=== PATIENT | male | born 1980 | race Two or more races ===

== ENCOUNTER 2019-11-05 23:22 | Inpatient (IN) | payer OTHER ==
[~2019-11-05] VITALS: Ht 167.6 cm; Wt 115.0 kg
--- NOTE | 2019-11-05 23:47 | NUR ---
THIS IS A 39Y M THAT COMES IN FOR BURNING CP X4 DAYS. PT HAS HX OF CHF, AND RECENTLY RAN OUT OF HIS MEDICATIONS. PT ABLE TO SPEAK IN FULL SENTENCES AND STS THIS HAS HAPPENED IN THE PAST. PT CONNECTED TO MONITORING VSS.
[2019-11-05] MEDS ORDERED: ISOS20TA3 PO (23:55)
[2019-11-05] MEDS ORDERED: SACU1TAB PO (23:55)
[2019-11-05] MEDS ORDERED: METO25TA35 PO ×2 (23:55)
[2019-11-05] MEDS ORDERED: ALBU6.7H8 INH (23:56)
[2019-11-06] MEDS ORDERED: SODIUM CHLORIDE FLUSH 10ML SYR IVF ONE
[2019-11-06 00:21] LABS: BASOPHILS # (AUTO) 0.11 x10^3/uL (0-0.1); BASOPHILS % (AUTO) 1 % (0-1); EOSINOPHILS # (AUTO) 0.57 x10^3/uL (0-0.4); EOSINOPHILS % (AUTO) 6 % (1-7); LYMPHOCYTES # (AUTO) 2.54 x10^3/uL (1-3.4); LYMPHOCYTES % (AUTO) 26 % (22-44); MD NO; MEAN CORPUSCULAR HEMOGLOBIN 31.7 pg (27.5-34.5); MEAN CORPUSCULAR HGB CONC 33.4 g/dL (33.2-36.2); MEAN CORPUSCULAR VOLUME 94.8 fL (81-97); MEAN PLATELET VOLUME 7.7 fL (7.4-10.4); MONOCYTES # (AUTO) 0.66 x10^3/uL (0.2-0.8); MONOCYTES % (AUTO) 7 % (2-9); NEUTROPHILS # (AUTO) 6.02 x10^3/uL (1.8-6.8); NEUTROPHILS % (AUTO) 61 % (42-75); PLATELET COUNT 240 x10^3/uL (130-400); RED BLOOD COUNT 4.95 x10^6/uL (4.38-5.82); RED CELL DISTRIBUTION WIDTH 14.2 % (9.4-14.8)
[2019-11-06] MEDS ORDERED: ISOSORBIDE MONONITRATE 20 MG TABLET PO ONE (00:30)
[2019-11-06 00:34] LABS: ALANINE AMINOTRANSFERASE 79 U/L (12-78); ALBUMIN 3.6 g/dL (3.4-5.0); ANION GAP 7 mmol/L (5-15); CALCIUM 8.3 mg/dL (8.5-10.1); CHLORIDE 111 mmol/L (98-107); CREATININE 1.63 mg/dL (0.7-1.3)
[2019-11-06 00:38] LABS: ALKALINE PHOSPHATASE 74 U/L (45-117); BILIRUBIN,TOTAL 0.7 mg/dL (0.2-1.0); TOTAL PROTEIN 7.1 g/dL (6.4-8.2); TROPONIN I 0.033 ng/mL (0.000-0.045)
[2019-11-06 01:03] LABS: D-DIMER 0.46 ug/mlFEU (0.00-0.52); INTERNATIONAL NORMALIZED RATIO 1.11 (0.93-1.1); PROTHROMBIN TIME 11.4 Seconds (9.6-11.5)
--- NOTE | 2019-11-06 01:10 | NUR ---
Break RN: Medicated patient per apr. IV established. Patient to be admitted.
[2019-11-06] MEDS ORDERED: ASPIRIN 81 MG TABLET CHEW ONE (01:15)
[2019-11-06] MEDS ORDERED: FUROSEMIDE 40 MG/4 ML ONE (01:15)
[2019-11-06] MEDS ORDERED: ASPIRIN 81 MG TABLET CHEW PO ONE (01:30)
[2019-11-06] MEDS ORDERED: FUROSEMIDE 40 MG/4 ML IV ONE (01:30)
[2019-11-06] MEDS ORDERED: ALBUTEROL HFA 90 MCG/SPRAY INH SCH (02:00)
[2019-11-06] MEDS ORDERED: NITROGLYCERIN 0.4 MG BOTTLE (25 TABS) SL PRN (02:00)
[2019-11-06] MEDS ORDERED: DOCUSATE 100 MG CAPSULE PO PRN (02:00)
[2019-11-06 02:34] VITALS: BP 130/90
[2019-11-06] MEDS: HEPARIN 5,000 UNITS/ML, 1ML SQ SCH ×3 (03:24→17:49)
[2019-11-06 03:43] LABS: CHLORIDE,URINE RANDOM 118 mmol/L; POTASSIUM,URINE RANDOM 14 mmol/L; SODIUM,URINE RANDOM 104 mmol/L
[2019-11-06 05:44] LABS: TROPONIN I 0.016 ng/mL (0.000-0.045)
[2019-11-06] MEDS ORDERED: ASPIRIN 81 MG TABLET EC PO SCH (06:00)
[2019-11-06] MEDS ORDERED: METOPROLOL TARTRATE 25 MG TAB PO SCH ×2 (07:30→21:00)
[2019-11-06 07:31] VITALS: BP 132/90
[2019-11-06 08:51] VITALS: BP 137/95
[2019-11-06] MEDS: ISOSORBIDE MONONITRATE 20 MG TABLET PO SCH (08:59)
[2019-11-06] MEDS ORDERED: FUROSEMIDE 40 MG/4 ML IVPush SCH (09:00)
[2019-11-06] MEDS ORDERED: SACUBITRIL/VALSARTAN 24MG-26MG TAB PO SCH (09:00)
[2019-11-06] MEDS: POTASSIUM CHLORIDE 20 MEQ TAB.ER.PRT PO SCH (09:01)
[2019-11-06] MEDS: ASPIRIN 81 MG TABLET EC PO SCH (09:01)
[2019-11-06 13:47] VITALS: BP 115/77
[2019-11-06 14:05] LABS: TROPONIN I < 0.015 ng/mL (0.000-0.045)
[2019-11-06] MEDS: CARVEDILOL 6.25 MG TABLET PO SCH (17:49)
[2019-11-06 17:50] VITALS: BP 133/92
[2019-11-06 19:26] VITALS: BP 124/87
[2019-11-06] MEDS: ATORVASTATIN 20 MG TABLET PO SCH (21:15)
[2019-11-06] MEDS: FUROSEMIDE 40 MG/4 ML IVPush SCH (21:15)
[2019-11-07 00:55] VITALS: BP 104/67
[2019-11-07] MEDS: HEPARIN 5,000 UNITS/ML, 1ML SQ SCH ×3 (00:57→17:10)
[2019-11-07 05:21] LABS: BASOPHILS # (AUTO) 0.09 x10^3/uL (0-0.1); BASOPHILS % (AUTO) 1 % (0-1); EOSINOPHILS # (AUTO) 0.64 x10^3/uL (0-0.4); EOSINOPHILS % (AUTO) 7 % (1-7); LYMPHOCYTES # (AUTO) 2.96 x10^3/uL (1-3.4); LYMPHOCYTES % (AUTO) 34 % (22-44); MD NO; MEAN CORPUSCULAR HEMOGLOBIN 31.6 pg (27.5-34.5); MEAN CORPUSCULAR HGB CONC 33.5 g/dL (33.2-36.2); MEAN CORPUSCULAR VOLUME 94.5 fL (81-97); MEAN PLATELET VOLUME 7.9 fL (7.4-10.4); MONOCYTES % (AUTO) 6 % (2-9); NEUTROPHILS # (AUTO) 4.54 x10^3/uL (1.8-6.8); NEUTROPHILS % (AUTO) 52 % (42-75); PLATELET COUNT 244 x10^3/uL (130-400); RED BLOOD COUNT 5.25 x10^6/uL (4.38-5.82); RED CELL DISTRIBUTION WIDTH 14.2 % (9.4-14.8)
[2019-11-07 05:32] LABS: CHLORIDE 111 mmol/L (98-107)
[2019-11-07 05:40] LABS: ALANINE AMINOTRANSFERASE 84 U/L (12-78); ALBUMIN 3.5 g/dL (3.4-5.0); ALKALINE PHOSPHATASE 70 U/L (45-117); ANION GAP 5 mmol/L (5-15); BILIRUBIN,TOTAL 1.2 mg/dL (0.2-1.0); CALCIUM 8.7 mg/dL (8.5-10.1); CHOL/HDL RATIO 7.1; CHOLESTEROL, TOTAL 227 mg/dL (140-239); CREATININE 1.62 mg/dL (0.7-1.3); HDL CHOL % 14 % (26-37); HDL CHOLESTEROL (DIRECT) 32 mg/dL (40-60); LDL CHOLESTEROL,CALCULATED 152 mg/dL (54-169); LDL/HDL RATIO 4.8 (0.5-3.0); TOTAL PROTEIN 7.5 g/dL (6.4-8.2); TRIGLYCERIDES 215 mg/dL (50-200); VLDL CHOLESTEROL 43 mg/dL (0-25)
[2019-11-07 06:19] VITALS: BP 138/96
[2019-11-07] MEDS: CARVEDILOL 6.25 MG TABLET PO SCH (06:20)
[2019-11-07 06:49] VITALS: BP 133/99
[2019-11-07] MEDS: POTASSIUM CHLORIDE 20 MEQ TAB.ER.PRT PO SCH (09:09)
[2019-11-07] MEDS: ASPIRIN 81 MG TABLET EC PO SCH (09:09)
[2019-11-07] MEDS: FUROSEMIDE 40 MG/4 ML IVPush SCH ×2 (09:09→21:08)
[2019-11-07] MEDS: ISOSORBIDE MONONITRATE 20 MG TABLET PO SCH (09:09)
[2019-11-07 13:08] VITALS: BP 123/88
[2019-11-07] MEDS: CARVEDILOL 12.5 MG TABLET PO SCH (17:10)
[2019-11-07 19:02] VITALS: BP 111/76
[2019-11-07] MEDS: ATORVASTATIN 20 MG TABLET PO SCH (21:08)
[2019-11-08] MEDS: HEPARIN 5,000 UNITS/ML, 1ML SQ SCH ×2 (01:04→09:12)
[2019-11-08 02:58] VITALS: BP 119/78
[2019-11-08 05:18] LABS: CHLORIDE 110 mmol/L (98-107)
[2019-11-08 05:23] LABS: ALANINE AMINOTRANSFERASE 79 U/L (12-78); ALBUMIN 3.8 g/dL (3.4-5.0); ALKALINE PHOSPHATASE 72 U/L (45-117); ANION GAP 9 mmol/L (5-15); CALCIUM 9.3 mg/dL (8.5-10.1); CREATININE 1.83 mg/dL (0.7-1.3); TOTAL PROTEIN 7.5 g/dL (6.4-8.2)
[2019-11-08 05:41] VITALS: BP 109/79
[2019-11-08] MEDS: CARVEDILOL 12.5 MG TABLET PO SCH (05:43)
[2019-11-08 07:48] VITALS: BP 118/88
[2019-11-08] MEDS: POTASSIUM CHLORIDE 20 MEQ TAB.ER.PRT PO SCH (09:11)
[2019-11-08] MEDS: ISOSORBIDE MONONITRATE 20 MG TABLET PO SCH (09:11)
[2019-11-08] MEDS: ASPIRIN 81 MG TABLET EC PO SCH (09:12)
[2019-11-08] MEDS: FUROSEMIDE 40 MG/4 ML IVPush SCH (09:12)
[2019-11-08] MEDS ORDERED: ATOR20TA37 PO (11:41)
[2019-11-08] MEDS ORDERED: POTA20TA6 PO (11:41)
[2019-11-08] MEDS ORDERED: ASPI81TA45 PO (11:41)
[2019-11-08] MEDS ORDERED: FURO20TA3 PO (11:41)
[2019-11-08] MEDS ORDERED: CARV12.52 PO (11:41)
[2019-11-08] MEDS ORDERED: FUROSEMIDE 20 MG TABLET PO SCH (17:00)
== END 2019-11-08 13:00 | disposition home or self-care (01) | DRG 292 ==
LOC: ED 11-06 02:15 → 5SO 11-06 02:30 → SUATTDRO 11-06 05:22 → ED 11-06 06:42 → DCLOUNGE 11-08 12:56
PROVIDERS: ADMIT Internal Medicine; ATTEND Internal Medicine
DX: I11.0 Hypertensive heart disease with heart failure (principal); N17.9 Acute kidney failure, unspecified; Z68.41 Body mass index [BMI] 40.0-44.9, adult; I50.43 Acute on chronic combined systolic (congestive) and diastolic (congestive) heart failure; E66.01 Morbid (severe) obesity due to excess calories
CPT/HCPCS: 36415; 71045; 80053; 80061; 80074; 82436; 83880; 84133; 84300; 84484; 85025; 85379; 85610; 85730; 93005; 93306; G0378; J1644; J1940